=== PATIENT | female | born 1990 | race Caucasian/White ===

== ENCOUNTER 2021-01-09 11:51 | Emergency (ER) | payer SELFPAY ==
[~2021-01-09] VITALS: Ht 170.2 cm; Wt 100.0 kg
[2021-01-09] MEDS ORDERED: MORPHINE SULFATE 4 MG/ML VIAL. IV ONE ×2 (12:30→14:45)
[2021-01-09] MEDS ORDERED: ONDANSETRON PF 4 MG/2 ML VIAL. IV ONE (12:30)
--- NOTE | 2021-01-09 12:57 | RAD ---
Three-view study left ankle Clinical indications: Left ankle pain and deformity FINDINGS: There is oblique fracture of the distal shaft of the left fibula. There is mild posterior d isplacement of the distal fracture segment of 4 mm. There is a nondisplaced oblique fracture of the m edial malleolus at the junction with the tibial plafond. Accessory ossification center of the tip of the medial malleolus is seen. The mortise ankle joint is intact otherwise. No lytic process is seen. Tiny plantar spur of the calcaneus is evident. Anterior soft tissue swelling is seen. IMPRESSION: Fractures of the medial malleolus and the distal of the left fibular shaft. Electronically signed by: Don Shen MD (01/09/2021 12:54 PM) [id number]
--- NOTE | 2021-01-09 13:08 | RAD ---
2 view study of the left tibia and fibula Clinical indications: Leg pain. FINDINGS: There is a comminuted oblique fracture of the distal left fibular shaft. There is posterior displacement of the distal fracture segment by 9 mm. There is nondisplaced oblique fracture of the m edial malleolus at the junction with the tibial plafond. The mortise ankle joint is intact. No lytic process is seen. IMPRESSION: Fractures of the distal left fibula and medial malleolus of the tibia. Electronically signed by: Don Shen MD (01/09/2021 1:06 PM) [id number]
[2021-01-09] MEDS ORDERED: HYDR-2761 PO (14:37)
--- NOTE | 2021-01-09 14:41 | ED.ADGEN ---
Past Medical History Past Medical History: No Pertinent History Past Surgical History: No Surgical History Smoking Status: Never Smoker Alcohol Use: None General Adult EDM: Chief Complaint: ANKLE PROBLEM HPI: HPI: Patient is a 30 year old female who presents emergency department with complaints of pain in her left ankle after she slid down some steps this morning. Patient denies any head, neck, or back pain. She denies any loss of consciousness, nausea, or vomiting. She reports she has been unable to bear weight on her lower left extremity since the injury happened. Patient denies any decreased sensation, numbness, or tingling of the affected extremity. She currently rates pain a 10 out of 10 on pain scale, she denies any alleviating factors, pain is worse with palpation and movement. Review of Systems: Review of Systems: Complete ROS is negative unless otherwise noted in HPI. Current Medications: Current Medications Medications (Trade) Dose Ordered Sig/Ayanna Start Time Stop Time Status Last Admin Dose Admin Morphine Sulfate (Morphine Sulfate) 4 mg 1X ONCE 01/09/21 14:45 01/09/21 14:46 Ondansetron HCl (Zofran) 4 mg 1X ONCE 01/09/21 12:30 01/09/21 12:31 DC 01/09/21 12:48 4 MG Allergies: Allergies: Allergies Coded Allergies Type Severity Reaction Last Updated Verified No Known Drug Allergies 01/09/21 No Physical Exam: PE: See Above Constitutional: Well developed, well nourished, no acute distress, non-toxic appearance., Appears uncomfortable [] HENT: Normocephalic, atraumatic, bilateral external ears normal, nose normal. [] Eyes: PERRLA, EOMI, conjunctiva normal, no discharge. [] Neck: Normal range of motion, no stridor. [] Cardiovascular:Heart rate regular rhythm Lungs & Thorax: Respirations even and unlabored, no retractions, no respiratory distress Skin: Warm, dry, no erythema, no rash. [] Extremities: LLE: Tenderness and deformity to the distal fibula and tibia, obvious deformity present, 2+ pedal and posterior tibial pulses, cap refill less than 2 seconds, sensation intact, no cyanosis, ROM limited due to pain Neurologic: Alert and oriented X 3, no focal deficits noted. [] Psychologic: Affect normal, judgement normal, mood normal. [] Current Patient Data: Vital Signs: Vital Signs Date Time Temp Pulse Resp B/P (MAP) Pulse Ox O2 Delivery O2 Flow Rate FiO2 01/09/21 12:49 18 96 Room Air 01/09/21 12:14 98.2 79 129/80 (96) 98.2 EKG: EKG: [] Heart Score: C/O Chest Pain: No Risk Scores: Score 0 - 3: 2.5% MACE over next 6 weeks - Discharge Home Score 4 - 6: 20.3% MACE over next 6 weeks - Admit for Clinical Observation Score 7 - 10: 72.7% MACE over next 6 weeks - Early Invasive Strategies Radiology/Procedures: Radiology/Procedures: PROCEDURE: ANKLE LEFT 3V Three-view study left ankle Clinical indications: Left ankle pain and deformity FINDINGS: There is oblique fracture of the distal shaft of the left fibula. T here is mild posterior displacement of the distal fracture segment of 4 mm. There is a nondisplaced oblique fracture of the medial malleolus at the junction with the tibial plafond. Accessory ossification center of the tip of the medial malleolus is seen. The mortise ankle joint is intact otherwise. No lytic process is seen. Tiny plantar spur of the calcaneus is evident. Anterior soft tissue swelling is seen. IMPRESSION: Fractures of the medial malleolus and the distal of the left fibular shaft. Electronically signed by: Don Shen MD (01/09/2021 12:54 PM) [id number] PROCEDURE: TIBIA FIBULA LEFT 2 view study of the left tibia and fibula Clinical indications: Leg pain. FINDINGS: There is a comminuted oblique fracture of the distal left fibular shaft. There is posterior displacement of the distal fracture segment by 9 mm. There is nondisplaced oblique fracture of the medial malleolus at the junction with the tibial plafond. The mortise ankle joint is intact. No lytic process is seen. IMPRESSION: Fractures of the distal left fibula and medial malleolus of the tibia. Electronically signed by: Don Shen MD (01/09/2021 1:06 PM) [id number] Course & Med Decision Making: Course & Med Decision Making Pertinent Labs and Imaging studies reviewed. (See chart for details) [id number] spoke with Dr. Monroe who reviewed the patient's x-rays. Will place patient in a posterior short leg with stirrups as per his recommendation. Will have patient follow-up with him in office this week [] Chelsy Disclaimer: Chelsy Disclaimer: This electronic medical record was generated, in whole or in part, using a voice recognition dictation system. Departure Departure Impression: Primary Impression: Fracture of left tibia and fibula Disposition: HOME / SELF CARE / HOMELESS Condition: STABLE Referrals: NO PCP (PCP) JASMEET MONROE DO Patient Instructions: Tibial and Fibular Fracture, Adult Additional Instructions: Fill prescription(s) and use as directed. Recommend application of ice, el evation, and rest of affected extremity. Wear the splint that was placed and use the crutches provided until follow up appointment. Call Dr. Monroe's office this morning to arrange follow up appointment. Return to the ER if your symptoms worsen. Scripts Hydrocodone Bit/Acetaminophen (HYDROCODONE-APAP 5-325 ) 1 Tab Tablet 1 TAB PO PRN Q6HRS PRN for PAIN for 5 Days, #20 TAB 0 Refills Prov: SUHAIL BONILLA LOAN INSPECTOR 01/09/21 Splinting Splinting : Location: [facility] Hand-Made Type: orthoglass Splint: posterior with stirrup Pre-Proc Neuro Vasc Exam: normal Post-Proc Neuro Vasc Exam: normal, unchanged from pre-exam Progress Patient tolerated procedure well, no complications Problem Qualifiers Primary Impression: Fracture of left tibia and fibula Encounter type: initial encounter Fracture type: closed Qualified Codes: S82.202A - Unspecified fracture of shaft of left tibia, initial encounter for closed fracture; S82.402A - Unspecified fracture of shaft of left fibula, initial encounter for closed fracture SUHAIL BONILLA LOAN INSPECTOR January 09, 2021 14:41
[2021-01-09 15:10] VITALS: BP 128/84
== END 2021-01-09 15:10 | disposition home or self-care (01) ==
LOC: ER 11:51
DX: S82.302A Unspecified fracture of lower end of left tibia, initial encounter for closed fracture (principal); S82.832A Other fracture of upper and lower end of left fibula, initial encounter for closed fracture; W10.8XXA Fall (on) (from) other stairs and steps, initial encounter; Y93.89 Activity, other specified; Y92.89 Other specified places as the place of occurrence of the external cause; Y99.8 Other external cause status
CPT/HCPCS: 29515; 73590; 73610; 96374; 96375; 96376; 99285; J2270; J2405